=== PATIENT | male | born 1940 | race Caucasian/White ===

== ENCOUNTER 2022-09-08 07:52 | Observation (INO) | payer OTHER ==
[2022-09-01 11:11] LABS: BASOPHILS % (AUTO) 0.4 % (0.0-5.0); EOSINOPHILS % (AUTO) 0.6 % (0.0-8.0); HEMATOCRIT 40.1 % (42-54); LYMPHOCYTES % (AUTO) 21.8 % (21.0-51.0); MEAN CORPUSCULAR HEMOGLOBIN 24.4 pg (27.0-33.0); MEAN CORPUSCULAR HGB CONC 29.7 g/dL (32.0-36.0); MEAN CORPUSCULAR VOLUME 82.3 fL (79-99); MONOCYTES % (AUTO) 9.6 % (3.0-13.0); NEUTROPHILS % (AUTO) 67.4 % (40.0-77.0); PLATELET COUNT (AUTO) 217 K/uL (130-400); RED BLOOD CELL COUNT(AUTO) 4.87 MIL/uL (4.50-6.20); RED CELL DISTRIBUTION WIDTH 16.3 % (11.0-15.5); WHITE BLOOD COUNT (AUTO) 5.2 K/uL (4.8-10.8)
[2022-09-01 11:17] LABS: CREATININE 1.2 mg/dL (0.5-1.5); POTASSIUM 4.2 mmol/L (3.5-5.1)
[2022-09-01 11:22] LABS: INR 1.11 (0.85-1.15)
[2022-09-01 11:24] LABS: PARTIAL THROMBOPLASTIN TIME 27.6 SEC (26.3-35.5)
[2022-09-01 11:25] VITALS: BP 156/78
[2022-09-08] VITALS (25 sets, daily range): BP systolic 133–171; BP diastolic 55–79
[~2022-09-08] VITALS: Ht 177.8 cm; Wt 76.1 kg
[~2022-09-08 07:52] MED LIST: APIX5TAB PO; LACTATED RINGERS 1000ML 1,000 ML IV SCH; OZEMPIC SQ
[2022-09-08] MEDS ORDERED: 0.9%NACL 1000ML 1,000 ML IV ONE (08:47)
[2022-09-08] MEDS: CEFAZOLIN SODIUM 1 GM VIAL IVPB SCH ×2 (09:30→14:23)
[2022-09-08] MEDS ORDERED: SEMA0.258 SQ (09:50)
[2022-09-08] MEDS ORDERED: HYDROMORPHONE 1 MG INJ ONE (13:18)
[2022-09-08] MEDS ORDERED: FAMOTIDINE 20MG VIAL IV ONE (13:18)
[2022-09-08] MEDS ORDERED: PROPOFOL 10 MG/ML 20ML VIAL IV ONE (13:38)
[2022-09-08] MEDS ORDERED: LIDOCAINE PF 100MG/5ML (2%) SYRINGE 5ML ONE (13:38)
[2022-09-08] MEDS ORDERED: GLYCOPYRROLATE 1 MG/5 ML SYRINGE ONE ×2 (13:38→16:05)
[2022-09-08] MEDS ORDERED: ROCURONIUM 10MG/1ML SYR 10 MG/ML ML ONE (13:39)
[2022-09-08] MEDS ORDERED: FENTANYL CITRATE PF 50 MCG/1 ML 2ML VIAL ONE ×2 (13:39→16:07)
[2022-09-08] MEDS ORDERED: TRANEXAMIC ACID 1000MG/10ML ONE ×2 (13:59→14:34)
[2022-09-08] MEDS ORDERED: 0.9%NACL 1000ML 1,000 ML IV SCH (14:00)
[2022-09-08] MEDS ORDERED: HYDROCODONE/ACETAMINOPHEN 5/325 MG TAB PO PRN (14:00)
[2022-09-08] MEDS ORDERED: POTASSIUM CHLORIDE 10% ELIXIR 20 MEQ/15 ML UDCUP PO PRN (14:00)
[2022-09-08] MEDS ORDERED: POTASSIUM CHLORIDE 20MEQ/100ML 100 ML IV PRN (14:00)
[2022-09-08] MEDS ORDERED: KCL 20 MEQ ERTAB PO PRN (14:00)
[2022-09-08] MEDS ORDERED: ONDANSETRON 4MG INJ IVP PRN (14:00)
[2022-09-08] MEDS ORDERED: NEOSTIGMINE 5MG/5ML SYR IV ONE (16:06)
[2022-09-08] MEDS ORDERED: KETOROLAC 15MG/ML VIAL (15MG/ML) ONE (16:30)
[2022-09-08] MEDS ORDERED: MEPERIDINE-PF 25 MG/ML SYG ONE ×2 (16:30→16:58)
[2022-09-08] MEDS: ACETAMINOPHEN 1,000 MG/100 ML VIAL IV SCH ×2 (17:05→20:00)
[2022-09-08] MEDS: TRAMADOL HCL 50 MG TABLET PO SCH ×2 (18:19→23:50)
[2022-09-08] MEDS: CEFAZOLIN SODIUM 2 GM VIAL IVPB SCH (18:21)
[2022-09-08] MEDS: FAMOTIDINE 20MG TAB PO SCH (20:02)
[2022-09-08] MEDS: HYDROCODONE/ACETAMINOPHEN 10/325 MG TAB PO PRN (20:04)
[2022-09-08] MEDS: MORPHINE 4 MG SYG IVP PRN (23:51)
[2022-09-09] VITALS: BP 139/60
[2022-09-09] MEDS: ACETAMINOPHEN 1,000 MG/100 ML VIAL IV SCH (02:00)
[2022-09-09] MEDS: HYDROCODONE/ACETAMINOPHEN 10/325 MG TAB PO PRN ×3 (03:14→16:05)
[2022-09-09 04:00] VITALS: BP 156/82
[2022-09-09] MEDS: CEFAZOLIN SODIUM 2 GM VIAL IVPB SCH (04:59)
[2022-09-09] MEDS ORDERED: CEFAZOLIN SODIUM 2 GM VIAL ONE (04:59)
[2022-09-09 05:22] LABS: HEMATOCRIT 35.6 % (42-54); MEAN CORPUSCULAR HEMOGLOBIN 24.6 pg (27.0-33.0); MEAN CORPUSCULAR HGB CONC 29.5 g/dL (32.0-36.0); MEAN CORPUSCULAR VOLUME 83.4 fL (79-99); RED BLOOD CELL COUNT(AUTO) 4.27 MIL/uL (4.50-6.20); RED CELL DISTRIBUTION WIDTH 17.8 % (11.0-15.5); WHITE BLOOD COUNT (AUTO) 8.8 K/uL (4.8-10.8)
[2022-09-09 05:40] LABS: CREATININE 1.3 mg/dL (0.5-1.5); POTASSIUM 4.5 mmol/L (3.5-5.1)
[2022-09-09] MEDS: TRAMADOL HCL 50 MG TABLET PO SCH ×4 (06:07→23:47)
[2022-09-09] MEDS: FAMOTIDINE 20MG TAB PO SCH ×2 (07:42→19:50)
[2022-09-09] MEDS: POLYETHYLENE GLYCOL 3350 17 GM POWD.PACK PO SCH (07:42)
[2022-09-09 08:14] VITALS: BP 125/57
[2022-09-09 11:50] VITALS: BP 103/50
[2022-09-09] MEDS: ENOXAPARIN SODIUM 30 MG/0.3 ML SQ SCH ×2 (12:18→19:14)
[2022-09-09 17:32] VITALS: BP 134/64
[2022-09-09] MEDS: MORPHINE 4 MG SYG IVP PRN (19:51)
[2022-09-09 20:00] VITALS: BP 141/77
[2022-09-10] VITALS: BP 126/64
[2022-09-10 04:00] VITALS: BP 141/62
[2022-09-10] MEDS: TRAMADOL HCL 50 MG TABLET PO SCH ×4 (05:18→23:56)
[2022-09-10] MEDS: POLYETHYLENE GLYCOL 3350 17 GM POWD.PACK PO SCH (08:09)
[2022-09-10] MEDS: FAMOTIDINE 20MG TAB PO SCH ×2 (08:09→20:03)
[2022-09-10] MEDS: ENOXAPARIN SODIUM 30 MG/0.3 ML SQ SCH ×2 (08:11→20:03)
[2022-09-10] MEDS: HYDROCODONE/ACETAMINOPHEN 10/325 MG TAB PO PRN (08:19)
[2022-09-10 08:21] VITALS: BP 149/55
[2022-09-10 12:00] VITALS: BP 109/52
[2022-09-10 20:00] VITALS: BP 146/93
[2022-09-11] VITALS (7 sets, daily range): BP systolic 101–158; BP diastolic 40–120
[2022-09-11] MEDS: TRAMADOL HCL 50 MG TABLET PO SCH (05:15)
[2022-09-11] MEDS ORDERED: ACETAMINOPHEN 500 MG TABLET PO PRN (07:30)
[2022-09-11] MEDS: FAMOTIDINE 20MG TAB PO SCH ×2 (08:22→19:49)
[2022-09-11] MEDS: POLYETHYLENE GLYCOL 3350 17 GM POWD.PACK PO SCH (08:22)
[2022-09-11] MEDS: ENOXAPARIN SODIUM 30 MG/0.3 ML SQ SCH (08:23)
[2022-09-11] MEDS ORDERED: BISACODYL 10 MG SUPP.RECT RC PRN (14:00)
[2022-09-11] MEDS: HYDROCODONE/ACETAMINOPHEN 10/325 MG TAB PO PRN (17:11)
[2022-09-12 04:00] VITALS: BP 142/55
[2022-09-12 07:00] VITALS: BP 148/54
[2022-09-12] MEDS: ENOXAPARIN SODIUM 30 MG/0.3 ML SQ SCH (07:54)
[2022-09-12] MEDS: POLYETHYLENE GLYCOL 3350 17 GM POWD.PACK PO SCH (07:54)
[2022-09-12] MEDS: FAMOTIDINE 20MG TAB PO SCH (07:54)
[2022-09-12] MEDS: HYDROCODONE/ACETAMINOPHEN 10/325 MG TAB PO PRN (07:58)
[2022-09-12 11:00] VITALS: BP 109/49
[2022-09-15] MEDS ORDERED: SEMAGLUTIDE 0.25 MG SQ SCH (09:00)
== END 2022-09-12 17:42 ==
LOC: DAH 07:52 → DAHIP 07:53 → 4AH 17:50
PROVIDERS: ADMIT Orthopaedic Surgery; ATTEND Orthopaedic Surgery
DX: M17.12 Unilateral primary osteoarthritis, left knee (principal); Z20.822 Contact with and (suspected) exposure to COVID-19; I10 Essential (primary) hypertension; K21.9 Gastro-esophageal reflux disease without esophagitis; E11.9 Type 2 diabetes mellitus without complications; E78.5 Hyperlipidemia, unspecified; Z79.01 Long term (current) use of anticoagulants; Z86.73 Personal history of transient ischemic attack (TIA), and cerebral infarction without residual deficits; Z91.81 History of falling; Z79.899 Other long term (current) drug therapy
CPT/HCPCS: 80048 ×2; 85025; 85610; 85730; 87426; 36415 ×2; 87641; 27447; 64447; 96365; 96375; 82948 ×16; 97039 ×8; 96376; 96372 ×4; 96366; 85027; 97161; 97116 ×7; 97530 ×4; A6260; C1776 ×4; G0378 ×94; A4663; J7030 ×2; J3490 ×4; J3010 ×2; J0690 ×3; J2710; J2001; J2704; J2405; J2270 ×2; J2175 ×2; J1885; G0168; A4649 ×3; A6212; A4930; C1713; A5120; A4215; A4223; A4222; A4221; J1650 ×5; J1170